=== PATIENT | female | born 1985 | race Caucasian/White ===

== ENCOUNTER 2020-01-08 19:53 | Emergency (ER) | payer OTHER ==
[~2020-01-08] VITALS: Ht 170.2 cm; Wt 59.0 kg
[2020-01-08] MEDS ORDERED: ARMOUR THYROID15 M1 PO (20:06)
[2020-01-08 21:50] VITALS: BP 112/77
== END 2020-01-08 21:54 | disposition home or self-care (01) ==
LOC: ER 19:53
DX: R22.41 Localized swelling, mass and lump, right lower limb (principal); Z79.899 Other long term (current) drug therapy